=== PATIENT | female | born 1965 | race Caucasian/White ===

== ENCOUNTER 2016-07-22 08:58 | Emergency (ER) | payer OTHER ==
--- NOTE | 2016-07-22 09:19 | ED ---
Lower Extremity - HPI Summary HPI Summary: atraumtric right "knee pain" she points to the pain though being distal lateral thigh. she is on her legs for work all day. it hurts more to walk on it. - History of Current Complaint Chief Complaint: UCLowerExtremity Stated Complaint: RIGHT KNEE PAIN Time Seen by Provider: 07/22/16 09:13 Hx Obtained From: Patient Hx Last Menstrual Period: MAY 2014 Onset of Pain: Days Severity Initially: Moderate Severity Currently: Moderate Timing: Constant Location: Is Discrete @ - right lateral thigh. Associated Signs And Symptoms: Negative: Swelling, Redness, Bruising, Fever, Dizziness, Syncope Aggravating Factor(s): Standing, Ambulation Alleviating Factor(s): Rest Able to Bear Weight: Yes - Allergies/Home Medications Allergies/Adverse Reactions: Allergies Allergy/AdvReac Type Severity Reaction Status Date / Time No Known Allergies Allergy Verified 07/22/16 09:11 PMH/Surg Hx/FS Hx/Imm Hx Endocrine/Hematology History: Reports: Hx Diabetes - STATES BORDERLINE Denies: Hx Anticoagulant Therapy, Hx Thyroid Disease Cardiovascular History: Reports: Hx Hypertension, Other Cardiovascular Problems/ Disorders - TIA Denies: Hx Congestive Heart Failure, Hx Deep Vein Thrombosis, Hx Myocardial Infarction, Hx Pacemaker/ICD Respiratory History: Reports: Hx Asthma, Hx Pneumonia Denies: Hx Chronic Obstructive Pulmonary Disease (COPD), Hx Lung Cancer, Hx Pulmonary Embolism GI History: Denies: Hx Gall Bladder Disease, Hx Gastrointestinal Bleed, Hx Ulcer, Hx Urosepsis History: Denies: Hx Kidney Stones, Hx Renal Disease Neurological History: Denies: Hx Dementia, Hx Migraine, Hx Seizures, Hx Transient Ischemic Attacks (TIA) Psychiatric History: Denies: Hx Anxiety, Hx Depression, Hx Schizophrenia, Hx Bipolar Disorder - Surgical History Surgery Procedure, Year, and Place: tubal ligation. appendectomy. gallbladder Infectious Disease History: No Infectious Disease History: Denies: Traveled Outside the [place] in Last 30 Days - Family History Known Family History: Positive: None, Cardiac Disease - Social History Occupation: Employed Full-time Alcohol Use: None Substance Use Type: Reports: Marijuana Substance Use Comment - Amount & Last Used: occasional use Smoking Status (MU): Former Smoker Review of Systems All Other Systems Reviewed And Are Negative: Yes Physical Exam Triage Information Reviewed: Yes Vital Signs On Initial Exam: Initial Vitals Temp Pulse Resp BP Pulse Ox 98.2 F 62 16 116/63 98 01/06/17 09:02 07/22/16 09:02 07/22/16 09:02 07/22/16 09:02 07/22/16 09:02 Vital Signs Reviewed: Yes Appearance: Positive: Well-Appearing Skin: Positive: Warm Head/Face: Positive: Normal Head/Face Inspection Eyes: Positive: Normal ENT: Positive: Normal ENT inspection Neck: Positive: Supple Respiratory/Lung Sounds: Positive: Clear to Auscultation Cardiovascular: Positive: Normal Abdomen Description: Positive: Nontender Musculoskeletal: Positive: Other - right distal thigh pain and tenderness. no knee pain. neg appley grind, neg anterior drawer. full rom. no effusion. Neurological: Positive: Sensory/Motor Intact, Alert, Oriented to Person Place, Time Psychiatric: Positive: Normal Diagnostics - Vital Signs Vital Signs Temp Pulse Resp BP Pulse Ox 07/22/16 09:02 98.2 F 62 16 116/63 98 - Laboratory Lab Statement: Any lab studies that have been ordered have been reviewed, and results considered in the medical decision making process. Lower Extremity Course/Dx - Course Course Of Treatment: right thigh muscle strain. knee exam is normal. off from work tomorrow. PT. otc pain meds. - Diagnoses Differential Diagnosis/HQI/PQRI: Positive: Arthritis, Bursitis, Cellulitis, Compartment Syndrome, Foreign Body, Fracture (Closed), Fracture (Open), Gout, Infection, Osteomyelitis, Sprain, Strain Provider Diagnoses: Muscle strain of right thigh Discharge - Discharge Plan Condition: Stable Disposition: HOME Patient Education Materials: Muscle Strain (ED) Forms: *Work Release Additional Instructions: Start PT for right thigh strain. stretch in the meantime. f/u pcp as needed.
[2016-07-22 09:25] VITALS: BP 116/63
== END 2016-07-22 09:29 | disposition home or self-care (01) ==
LOC: UCCORT 08:58
DX: S76.911A Strain of unspecified muscles, fascia and tendons at thigh level, right thigh, initial encounter (principal); X58.XXXA Exposure to other specified factors, initial encounter; Y92.9 Unspecified place or not applicable; R73.03 Prediabetes; E07.9 Disorder of thyroid, unspecified; I10 Essential (primary) hypertension; J45.909 Unspecified asthma, uncomplicated; F17.200 Nicotine dependence, unspecified, uncomplicated; Z86.73 Personal history of transient ischemic attack (TIA), and cerebral infarction without residual deficits
CPT/HCPCS: 99211; G0463

== ENCOUNTER 2016-09-13 11:36 | Emergency (ER) | payer OTHER ==
[2016-09-13 11:49] VITALS: BP 108/70
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
== END 2016-09-13 12:25 | disposition home or self-care (01) ==
LOC: UCCORT 11:36
DX: S16.1XXA Strain of muscle, fascia and tendon at neck level, initial encounter (principal); X58.XXXA Exposure to other specified factors, initial encounter; Y93.9 Activity, unspecified; Y92.9 Unspecified place or not applicable; Z90.49 Acquired absence of other specified parts of digestive tract; F12.90 Cannabis use, unspecified, uncomplicated; Z87.891 Personal history of nicotine dependence
CPT/HCPCS: 99212; G0463

== ENCOUNTER 2017-08-25 09:47 | Emergency (ER) | payer OTHER ==
[2017-08-25 11:35] VITALS: BP 117/73
--- NOTE | 2017-08-25 12:50 | UC ---
UC General HPI - HPI Summary HPI Summary: Pleasant 52 yo female c/o last few days cough, fever, myalgias, h/a, gi upset. + sore throat. No sob / cp / palpitations. No rash. - History of Current Complaint Chief Complaint: UCGeneralIllness Stated Complaint: FLU SYMPTOMS Time Seen by Provider: 08/25/17 11:35 Hx Obtained From: Patient Hx Last Menstrual Period: MAY 2014 Pain Intensity: 0 - Allergy/Home Medications Allergies/Adverse Reactions: Allergies Allergy/AdvReac Type Severity Reaction Status Date / Time No Known Allergies Allergy Verified 08/25/17 11:31 PMH/Surg Hx/FS Hx/Imm Hx Previously Healthy: Yes Other History Of: Negative For: HIV, Hepatitis B, Hepatitis C, Anticoagulant Therapy - Surgical History Surgical History: Yes Surgery Procedure, Year, and Place: tubal ligation. appendectomy. gallbladder - Family History Known Family History: Positive: None, Cardiac Disease - Social History Alcohol Use: None Substance Use Type: Marijuana Substance Use Comment - Amount & Last Used: several times a day Smoking Status (MU): Former Smoker Type: Cigarettes Length of Time of Smoking/Using Tobacco: smoked for approx 10 yrs Have You Smoked in the Last Year: No When Did the Patient Quit Smoking/Using Tobacco: 1985 Household Exposure Type: Cigarettes - Immunization History Most Recent Influenza Vaccination: none Review of Systems Constitutional: Fever, Fatigue Skin: Negative Eyes: Negative ENT: Sore Throat, Sinus Congestion Respiratory: Cough Cardiovascular: Negative Gastrointestinal: Other - GI upset but no vomiting / diarrhea. Genitourinary: Negative Motor: Negative Neurovascular: Negative Musculoskeletal: Negative Neurological: Negative Psychological: Negative Is Patient Immunocompromised?: No All Other Systems Reviewed And Are Negative: Yes Physical Exam Triage Information Reviewed: Yes Appearance: Well-Nourished - sitting up. looks tired. Vital Signs: Initial Vital Signs Temp 98.3 F 08/25/17 11:30 Pulse 69 08/25/17 11:30 Resp 16 08/25/17 11:30 BP 117/73 08/25/17 11:30 Pulse Ox 100 08/25/17 11:30 Vital Signs Reviewed: Yes Eye Exam: Normal ENT: Positive: Pharyngeal erythema - mild post pharynx red, no sores / exudate, TM dull - tm dull au Neck exam: Normal Neck: Positive: Supple, Nontender, No Lymphadenopathy Respiratory Exam: Other - BS equal No wheeze, + cough. Respiratory: Positive: Chest non-tender, Lungs clear, No respiratory distress, No accessory muscle use Cardiovascular Exam: Normal Cardiovascular: Positive: RRR, No Murmur, Pulses Normal, Brisk Capillary Refill Abdominal Exam: Normal Abdomen Description: Positive: Nontender Musculoskeletal Exam: Normal - gait steady Neurological Exam: Normal - grossly nonfocal Psychological Exam: Normal - conversing easily and appropriately Skin Exam: Normal - no visible or reported rash. nondiaphoretic. Course/Dx - Course Course Of Treatment: Reviewed results, coa / tx plan with Ms. Henry. She does occasionally wheeze, not currently. =. Rx - albuterol as needed. Rx - tamiflu. Questions as posed answered to the best of my ability. - Differential Dx - Multi-Symptom Provider Diagnoses: Influenza B Discharge - Discharge Plan Condition: Stable Disposition: HOME Prescriptions: Albuterol HFA INHALER* [Ventolin HFA Inhaler*] 1 - 2 puff INH Q6H PRN #1 mdi PRN Reason: Wheezing Oseltamivir CAP* [Tamiflu CAP*] 75 mg PO BID #10 cap Patient Education Materials: Influenza (ED) Forms: *Work Release Referrals: PANCHITO SerranoKandi [Primary Care Provider] - Additional Instructions: Follow up with your primary care provider, per routine. You tested positive for INFLUENZA "B". Seek medical attention for worse or new problems. Advise household member(s) to contact his doctor.
== END 2017-08-25 13:26 | disposition home or self-care (01) ==
LOC: UCCORT 09:47
DX: J10.1 Influenza due to other identified influenza virus with other respiratory manifestations (principal); Z87.891 Personal history of nicotine dependence
CPT/HCPCS: 87502; 99212; G0463

== ENCOUNTER 2018-08-30 14:31 | Emergency (ER) | payer SELFPAY ==
[2018-08-30 16:02] VITALS: BP 136/76
--- NOTE | 2018-08-30 16:04 | UC ---
Upper Extremity HPI - HPI Summary HPI Summary: 53 yo female presents with left upper back pain/neck pain for the last 3 weeks. She tells me that she had some aches in this area about 3 weeks ago and then remembers going to bed and waking up the next morning with stiffness and pain in the area. She has had massages which really helped her discomfort. Has taken ibuprofen with little relief. Has some pain radiating down her left arm with certain movements - flexion mostly or heavy lifting. Denies injury, numbness, tingling, SOB, chest pain. - History of Current Complaint Chief Complaint: UCUpperExtremity Stated Complaint: LEFT SIDE PAIN Time Seen by Provider: 08/30/18 16:03 Hx Obtained From: Patient Hx Last Menstrual Period: MAY 2014 Onset/Duration: Sudden Onset Severity Initially: Severe Severity Currently: Severe Pain Intensity: 9 Pain Scale Used: 0-10 Numeric - Allergies/Home Medications Allergies/Adverse Reactions: Allergies Allergy/AdvReac Type Severity Reaction Status Date / Time No Known Allergies Allergy Verified 08/30/18 15:45 Home Medications: Home Medications Gabapentin [Neurontin] 100 mg PO DAILY 08/30/18 [History Confirmed 08/30/18] PMH/Surg Hx/FS Hx/Imm Hx Endocrine History: Dyslipidemia Cardiovascular History: Hypertension Respiratory History: Asthma Other History Of: Negative For: HIV, Hepatitis B, Hepatitis C, Anticoagulant Therapy - Surgical History Surgical History: Yes Surgery Procedure, Year, and Place: tubal ligation. appendectomy. gallbladder - Family History Known Family History: Positive: Cardiac Disease, Hypertension - Social History Lives: With Family Alcohol Use: None Substance Use Type: Marijuana Substance Use Comment - Amount & Last Used: several times a day- this AM Smoking Status (MU): Former Smoker Type: Cigarettes Length of Time of Smoking/Using Tobacco: smoked for approx 10 yrs Have You Smoked in the Last Year: No When Did the Patient Quit Smoking/Using Tobacco: 1985 Household Exposure Type: Cigarettes - Immunization History Most Recent Influenza Vaccination: none Review of Systems All Other Systems Reviewed And Are Negative: Yes Constitutional: Positive: Negative Skin: Positive: Negative Respiratory: Positive: Negative Cardiovascular: Positive: Negative Neurovascular: Positive: Negative Musculoskeletal: Positive: Other: - left upper back pain Neurological: Positive: Negative Psychological: Positive: Negative Physical Exam - Summary Physical Exam Summary: GENERAL: NAD. WDWN. No pain distress. SKIN: No rashes, sores, lesions, or open wounds. CHEST: No accessory muscle use. Breathing comfortably and in no distress. CV: Pulses intact radial and ulnar. Cap refill <2seconds MSK: Left upper trapezius: TTP with palpable muscle spasm. LEFT SHOULDER: FROM, but pain in trap with flexion. Strength 5/5. No edema or obvious bony deformities. Negative empty can, wallace-chris, neer, vidal, and yergason tests. C spine: NTTP. FROM, but pain with neck extension at trap. Negative spurlings. NEURO: Alert. Sensations intact hand and all fingers. PSYCH: Age appropriate behavior. Triage Information Reviewed: Yes Vital Signs: Initial Vital Signs Temp 98.1 F 08/30/18 15:48 Pulse 60 08/30/18 15:48 Resp 18 08/30/18 15:48 BP 136/76 08/30/18 15:48 Pulse Ox 99 08/30/18 15:48 Vital Signs Reviewed: Yes Upper Extremity Course/Dx - Course Course Of Treatment: XR shoulder: IMPRESSION: Normal radiograph of the left shoulder. If the patient's symptoms persist, follow-up imaging is recommended. XR c spine: FINDINGS: On the lateral view there is reversal of the normal cervical lordosis. Degenerative changes include loss of intervertebral disc height at the mid-level lower. cervical spine most severely affecting C5/C6 where there is sclerotic change of the. articulating endplates and mild marginal osteophyte formation. At the same levels there is. mild bony proliferation narrowing the neural foramina on the oblique views. There is no. acute fracture or dislocation identified. There is no precervical soft tissue swelling. IMPRESSION: Reversal of the normal cervical lordosis and degenerative disc disease as. described above. If the patient's symptoms persist, follow-up imaging is recommended. Pt was given toradol IM in the clinic. Suspect muscle spasm. Rx for flexeril and physical therapy. - Differential Dx/Diagnosis Provider Diagnosis: Trapezius muscle spasm Discharge - Sign-Out/Discharge Documenting (check all that apply): Patient Departure All imaging exams completed and their final reports reviewed: Yes - Discharge Plan Condition: Stable Disposition: HOME Prescriptions: Cyclobenzaprine TAB* [Flexeril 10 MG TAB*] 10 mg PO BID PRN #20 tab PRN Reason: Pain Patient Education Materials: Muscle Spasm (ED) Referrals: No Primary Care Phys,NOPCP [Primary Care Provider] - Additional Instructions: If you develop a fever, shortness of breath, chest pain, new or worsening symptoms - please call your PCP or go to the ED. 1) Apply heat to your shoulder/back to relax the muscle 2) Please call Physical therapy to schedule an appointment for further evaluation and treatment of your muscle spasm - Billing Disposition and Condition Condition: STABLE Disposition: Home - Attestation Statements Provider Attestation: Per institutional requirements, I have reviewed the chart, however, I was not consulted specifically or made aware of this patient by the midlevel provider. I did not personally evaluate, interact with , or disposition this patient.
[2018-08-30] MEDS: Ketorolac INJ* 30 MG/ML 1 ML VIAL IM ONE (16:22)
== END 2018-08-30 17:18 | disposition home or self-care (01) ==
LOC: UCCORT 14:31
DX: M62.838 Other muscle spasm (principal); M50.30 Other cervical disc degeneration, unspecified cervical region; I10 Essential (primary) hypertension; J45.909 Unspecified asthma, uncomplicated; Z87.891 Personal history of nicotine dependence
CPT/HCPCS: 72050; 96372; 99212; G0463; J1885

== ENCOUNTER 2019-03-17 19:27 | Emergency (ER) | payer OTHER ==
[2019-03-17 19:34] VITALS: BP 156/87
[2019-03-17] MEDS ORDERED: HYDROcodone/ACETAMIN 5-325 MG* 1 TAB PO ONE (19:39)
[2019-03-17] MEDS ORDERED: Silver Sulfadiazine 1%* 20 GM TOPICAL ONE (19:43)
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
== END 2019-03-17 19:54 | disposition home health service (06) ==
LOC: UCCORT 19:27
DX: T20.29XA Burn of second degree of multiple sites of head, face, and neck, initial encounter (principal); T20.27XA Burn of second degree of neck, initial encounter; T22.252A Burn of second degree of left shoulder, initial encounter; T22.111A Burn of first degree of right forearm, initial encounter; T31.0 Burns involving less than 10% of body surface; X10.1XXA Contact with hot food, initial encounter; Y93.G3 Activity, cooking and baking; Y92.9 Unspecified place or not applicable; Z87.891 Personal history of nicotine dependence; E11.9 Type 2 diabetes mellitus without complications; I10 Essential (primary) hypertension; Z86.73 Personal history of transient ischemic attack (TIA), and cerebral infarction without residual deficits
CPT/HCPCS: 99212; G0463

== ENCOUNTER 2019-03-19 15:58 | Emergency (ER) | payer OTHER ==
[2019-03-19 16:30] VITALS: BP 122/72
[2019-03-19] MEDS ORDERED: Tetan/Diph/Pertus SYR(Tdap)* 0.5 ML SYR(BOOSTRIX) use SYR IM ONE (16:51)
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
== END 2019-03-19 17:06 | disposition home or self-care (01) ==
LOC: UCCORT 15:58
DX: H02.844 Edema of left upper eyelid (principal); H02.841 Edema of right upper eyelid; R73.03 Prediabetes; I10 Essential (primary) hypertension; Z87.891 Personal history of nicotine dependence
CPT/HCPCS: 90471; 90715; 99211; G0463

== ENCOUNTER 2019-09-30 15:04 | Emergency (ER) | payer OTHER ==
[2019-09-30 16:20] VITALS: BP 136/88
--- NOTE | 2019-09-30 16:34 | UC ---
Respiratory Complaint HPI - HPI Summary HPI Summary: Pt presents with c/o dry, hacking, cough, ST, X 3 days. Pt has hx of asthma and is a current everyday smoker. - History of Current Complaint Chief Complaint: UCGeneralIllness Stated Complaint: COUGH,BODY ACHES Time Seen by Provider: 09/30/19 16:14 Hx Obtained From: Patient Hx Last Menstrual Period: MAY 2014 ?: No Onset/Duration: Sudden Onset, Lasting Days Timing: Intermittent Episodes Severity Initially: Mild Severity Currently: Mild Pain Intensity: 8 Character: Cough: Nonproductive Aggravating Factors: Exertion, Deep Breaths, Recumbent Position Alleviating Factors: Nothing Associated Signs And Symptoms: Positive: Chills - Risk Factors Pulmonary Embolism Risk Factors: Smoking Cardiac Risk Factors: Smoking Pseudomonas Risk Factors: Chronic Lung Disease Tuberculosis Risk Factors: Smoking - Allergies/Home Medications Allergies/Adverse Reactions: Allergies Allergy/AdvReac Type Severity Reaction Status Date / Time No Known Allergies Allergy Verified 09/30/19 16:21 Home Medications: Home Medications Latanoprost 0.005%* [Xalatan 0.005%*] 1 drop BOTH EYES QPM 12/04/14 [History Confirmed 09/30/19] Simvastatin TAB(NF) [Zocor 10 MG (NF)] 10 mg PO QPM 12/04/14 [History Confirmed 09/30/19] Aspirin EC TAB* [Ecotrin EC Low Dose 81 MG*] 81 mg PO DAILY 07/18/15 [History Confirmed 09/30/19] Timolol 0.5% OPTH.KAREEM* [Timoptic 0.5% Opth*] 1 drop BOTH EYES DAILY 05/21/17 [ History Confirmed 09/30/19] Albuterol HFA INHALER* [Ventolin HFA Inhaler*] 1 - 2 puff INH Q6H PRN #1 mdi 04/03 [Rx Confirmed 09/30/19] Hydrocodone/Acetaminophen [Hydrocodone-Acetamin 5-325 mg] 1 tab PO DAILY PRN 10/02 [History Confirmed 09/30/19] Azithromycin TAB* [Zithromax TAB (Z-LARA) 250 mg #6 tabs] 2 tab PO .TODAY, THEN 1 DAILY #1 lara 09/30/19 [Rx] predniSONE 10 mg TAB [Deltasone 10 MG TAB*] 30 mg PO DAILY #12 tab 09/30/19 [Rx] PMH/Surg Hx/FS Hx/Imm Hx Previously Healthy: Yes Respiratory History: Asthma Other History Of: Negative For: HIV, Hepatitis B, Hepatitis C, Anticoagulant Therapy - Surgical History Surgical History: Yes Surgery Procedure, Year, and Place: tubal ligation. appendectomy. gallbladder - Family History Known Family History: Positive: Cardiac Disease, Hypertension, Non-Contributory - Social History Occupation: Employed Full-time Lives: With Family Alcohol Use: None Substance Use Type: Marijuana Substance Use Comment - Amount & Last Used: several times a day- this AM Smoking Status (MU): Former Smoker Type: Cigarettes Length of Time of Smoking/Using Tobacco: smoked for approx 10 yrs Have You Smoked in the Last Year: No When Did the Patient Quit Smoking/Using Tobacco: 1985 Household Exposure Type: Cigarettes - Immunization History Most Recent Influenza Vaccination: none Vaccination Up to Date: No Review of Systems All Other Systems Reviewed And Are Negative: Yes Constitutional: Positive: Chills, Fatigue Skin: Positive: Negative Eyes: Positive: Negative ENT: Positive: Negative Respiratory: Positive: Cough Cardiovascular: Positive: Negative Gastrointestinal: Positive: Negative Genitourinary: Positive: Negative Motor: Positive: Negative Neurovascular: Positive: Negative Musculoskeletal: Positive: Negative Neurological/Mental Status: Positive: Negative Psychological: Positive: Negative Is Patient Immunocompromised?: No Physical Exam Triage Information Reviewed: Yes Appearance: Well-Appearing Vital Signs: Initial Vital Signs Temp 97.7 F 09/30/19 16:17 Pulse 70 09/30/19 16:17 Resp 16 09/30/19 16:17 BP 136/88 09/30/19 16:17 Pulse Ox 99 09/30/19 16:17 Vital Signs Reviewed: Yes Eye Exam: Normal ENT: Positive: Nasal congestion Dental Exam: Normal Neck exam: Normal Respiratory: Positive: No respiratory distress, Decreased breath sounds - bases Cardiovascular Exam: Normal Musculoskeletal Exam: Normal Neurological Exam: Normal Psychological Exam: Normal Skin Exam: Normal Respiratory Course/Dx - Differential Dx/Diagnosis Differential Diagnosis/HQI/PQRI: Bronchitis, Exacerbation Of COPD, Influenza Provider Diagnosis: Bronchitis Discharge ED - Sign-Out/Discharge Documenting (check all that apply): Patient Departure All imaging exams completed and their final reports reviewed: No Studies - Discharge Plan Condition: Stable Disposition: HOME Prescriptions: Azithromycin TAB* [Zithromax TAB (Z-LARA) 250 mg #6 tabs] 2 tab PO .TODAY, THEN 1 DAILY #1 lara predniSONE 10 mg TAB [Deltasone 10 MG TAB*] 30 mg PO DAILY #12 tab Patient Education Materials: Acute Bronchitis (ED) Referrals: Sofia Nair PA [Primary Care Provider] - If Needed - Billing Disposition and Condition Condition: STABLE Disposition: Home - Attestation Statements Provider Attestation: I was available for consultation for this patient. I did not evaluate the patient or participate in any medical decision making or disposition decisions unless I am specifically named in the chart as having consulted on the patient. If I have consulted on the patient, please see my own ED note on the patient encounter. Rosalie Herron MD
== END 2019-09-30 16:53 | disposition home or self-care (01) ==
LOC: UCCORT 15:04
DX: J45.909 Unspecified asthma, uncomplicated (principal); Z87.891 Personal history of nicotine dependence; Z79.82 Long term (current) use of aspirin; Z79.52 Long term (current) use of systemic steroids
CPT/HCPCS: 99212; G0463